=== PATIENT | male | born 1970 | race Caucasian/White ===

== ENCOUNTER 2019-05-03 17:37 | Emergency (ER) | payer OTHER ==
[~2019-05-03] VITALS: Ht 188 cm; Wt 120.7 kg
--- OUTSIDE RECORDS SUMMARY | 2019-05-03 17:40 | XMS ---
PreManage Notification: JARRED PARMAR Security Claim Approver Events No recent Security Events currently on file [facility] MET [facility] There are no care providers on record at this time. Yefri has no Care Guidelines for this patient. Tania VISIT COUNT (12 MO.) 1 DAVEY Cline TOTAL 1 NOTE: Visits indicate total known visits. ED/UCC VISIT TRACKING (12 MO.) 05/03/2019 17:37 DAVEY Fournier OR TYPE: Emergency COMPLAINT: - NECK PAIN, INJ INPATIENT VISIT TRACKING (12 MO.) No inpatient visits to display in this time frame [email or web address]
[2019-05-03] MEDS ORDERED: PRAZOSIN HCL2 MG PO (17:50)
[2019-05-03] MEDS ORDERED: HYDROXYZINE HCL50 MG PO (17:50)
== END 2019-05-03 19:41 | disposition home or self-care (01) ==
LOC: ED 17:37
DX: S06.0X9A Concussion with loss of consciousness of unspecified duration, initial encounter (principal); S16.1XXA Strain of muscle, fascia and tendon at neck level, initial encounter; W10.9XXA Fall (on) (from) unspecified stairs and steps, initial encounter; J44.9 Chronic obstructive pulmonary disease, unspecified; Z87.891 Personal history of nicotine dependence; Z79.899 Other long term (current) drug therapy
CPT/HCPCS: 70450; 72125; 99284-25